=== PATIENT | male | born 1970 | race Caucasian/White ===

== ENCOUNTER → 2019-07-01 | Outpatient (CLI) | payer OTHER ==
[~2019-07-01] VITALS: Ht 180.3 cm; Wt 122.5 kg
[~2019-07-01] MED LIST: CRESTOR5 MG PO; METO-239 PO; NITR0.4T24 SL; PANT40TA77 PO; REGADENOSON 0.4 MG/5 ML DISP.SYRIN. IV ONE
--- NOTE | 2019-07-01 10:16 | CARD ---
MR#: [id number] Date of Study: 07/01/2019 Ordering Physician: ABEL QUINONES, Referring Physician: ABEL QUINONES Tech: Cait Walls RDCS APPROVED REPORT EXAM: Two-dimensional and M-mode echocardiogram with Doppler and color Doppler. Other Information Quality : Good INDICATION Cardiac Disease: CAD 2D DIMENSIONS RVDd2.9 (2.9-3.5cm)Left Atrium(2D)3.8 (1.6-4.0cm) IVSd1.4 (0.7-1.1cm)Aortic Root(2D)2.9 (2.0-3.7cm) LVDd5.1 (3.9-5.9cm)LVOT Diameter2.4 (1.8-2.4cm) PWd1.1 (0.7-1.1cm)LVDs3.7 (2.5-4.0cm) FS (%) 27.0 %SV62.9 ml LVEF(%)55.0 (>50%) Aortic Valve AoV Peak Colt.120.5cm/sAoV VTI24.0cm AO Peak GR.5.8mmHgLVOT Peak Colt.104.1cm/s AO Mean GR.3mmHgAVA (VMAX)3.87cm2 NALLELY (VTI)4.20cm2 Mitral Valve MV E Fbeqidih06.6cm/sMV DECEL ILPY711pt MV A Cmbqipwm79.6cm/sE/A Ratio1.4 Tricuspid Valve TR P. Wwipragq412ka/sRAP UMFEGRBC4mlDl TR Peak Gr.41paMwWRWU22kyFr Pulmonary Vein S1 Jpntnzfm58.8cm/sD2 Qftytopw78.5cm/s LEFT VENTRICLE The left ventricle is normal size. There is mild asymmetric septal hypertrophy. The left ventricular systolic function is normal. The Ejection Fraction is 55-60%. There is normal LV segmental wall motio n. RIGHT VENTRICLE The right ventricle is normal size. The right ventricular systolic function is normal. ATRIA The left atrium size is normal. The right atrium size is normal. The interatrial septum is intact wit h no evidence for an atrial septal defect or patent foramen ovale as noted on 2-D or Doppler imaging. AORTIC VALVE The aortic valve is calcified but opens well. Doppler and Color Flow revealed no significant aortic r egurgitation. There is no significant aortic valvular stenosis. MITRAL VALVE The mitral valve is normal in structure and function. There is no evidence of mitral valve prolapse. There is no mitral valve stenosis. Doppler and Color-flow revealed trace mitral regurgitation. TRICUSPID VALVE The tricuspid valve is normal in structure and function. Doppler and Color Flow revealed trace tricus pid regurgitation. The PA pressure was estimated at 30 mmHg. There is no tricuspid valve stenosis. PULMONIC VALVE The pulmonic valve is not well visualized. Doppler and Color Flow revealed no pulmonic valvular regur gitation. There is no pulmonic valvular stenosis. GREAT VESSELS The aortic root is normal in size. The ascending aorta is mildly dilated at 3.6 cm. The IVC was not v isualized. PERICARDIAL EFFUSION There is no evidence of significant pericardial effusion. Critical Notification Critical Value: No <Conclusion> The left ventricular systolic function is normal. The Ejection Fraction is 55-60%. There is normal LV segmental wall motion. Trace mitral regurgitation. Trace tricuspid regurgitation. The PA pressure was estimated at 30 mmHg. There is no evidence of significant pericardial effusion. Signed by : Abel Quinones, Electronically Approved : 07/01/2019 10:16:15
--- NOTE | 2019-07-02 10:32 | RAD ---
MR#: [id number] Date of Study: 07/02/2019 Ordering Physician: ABEL QUINONES, Referring Physician: DIONNA GOODEN Tech: JACKIE Chaudhry ARRT (R) (N) APPROVED REPORT Test Type: Pharmacological Stress Nurse/Tech: sung Jules RN Test Indications: CAD Cardiac History: CAD Medications: See Electronic Medical Record Medical History: See Electronic Medical Record Resting ECG: SR Resting Heart Rate: 67 bpm Resting Blood Pressure: 128/75mmHg Pretest Chest Pain: None Nurse/Tech Notes lungs CTA, S1S2 Consent: The procedure was explained to the patient in lay terms. Informed consent was witnessed. Benjamin eout was entered into [employer]. History and Stress Test performed by Sung Jules RN Pharm. Details Pharmacologic stress testing was performed using 0.4mg per 5ml of regadenoson given intravenously ove r 7-10 seconds. Stress Symptoms No chest pain or symptoms. POST EXERCISE Reason for Termination: Infusion complete Max HR: 91 bpm Max Blood Pressure: 137/80mmHg Blood Pressure response to exercise: Normal blood pressure response during stress. Heart Rate response to exercise: normal response Chest Pain: No. Arrhythmia: No. ST Change: No. INTERPRETATION Stress EKG Conclusion: Baseline EKG showed sinus rhythm. No ischemic changes at peak stress. No arr hythmias. Imaging Protocol IMAGE PROTOCOL: Rest Tc-99m/stress Tc-99m 1 day Rest: Stress: Viability: Radiopharm.Tc99m KynqnnjijEc23b Sestamibi Iqnk12eDq 32mCi Img Date 07/01/2019 07/02/2019 Inj-Img Zggg25cqr. 45min. Rest Admin Site:IV - Left AntecubitalAdministrator:JACKIE Chaudhry ARRT (R)(N) Stress Admin Site: IV - Right HandAdministrator: RT Janusz (R)(N) STRESS DATA End Diast. Vol.130.0mlAv. Heart Rate67.0bpm End Syst. Vol.33.0mlCO Index BSA6.5L/min Myocardial Wwrs899.0gEject. Hugeohpq84.0% Stress Rates Pk. Fill Rate3.15EDV/secLVtime Pk. Fill 137.63msec Pk. Empty Rate3.41ESV/secLVtime Pk. Zayqv840.55msec / Pk. Fill2.19EDV/sec Stress Scores Regional WT0.00Summed WT1.00 Regional WM0.00Summed WM4.00 Study quality was good. Left Ventricular size was Normal at Rest and Stress. Lung uptake was . Left Ventricular ejection fraction is 66%. The rest and stress images show normal perfusion, normal contraction and thickening. LV Perf. Quant 17 Seg. SSS0.00 17 Seg. SRS0.00 17 Seg. SDS0.00 Stress Defect Extent (% LAD)0.00Rest Defect Extent (% LAD)0.00Rev. Defect Extent (% LAD)0.00 Stress Defect Extent (% LCX) 0.00Rest Defect Extent (% LCX)0.00Rev. Defect Extent (% LCX)0.00 Stress Defect Extent (% RCA)0.00Rest Defect Extent (% RCA)0.00Rev. Defect Extent (% RCA)0.00 Stress Defect Extent (% MONA)0.90Rest Defect Extent (% MONA)0.00Rev. Defect Extent (% MONA)0.90 Conclusion 1. Regadenoson cardioisotope stress test did not show any evidence of ischemia or infarct. 2. Normal left ventricular systolic function with ejection fraction calculated at 66%. 3. Low risk for cardiac events. Signed by : Abel Quinones, Electronically Approved : 07/02/2019 10:31:53
== END | disposition home or self-care (01) ==
LOC: NM 09:09
PROVIDERS: ATTEND Internal Medicine Cardiovascular Disease
DX: I35.8 Other nonrheumatic aortic valve disorders (principal); I25.10 Atherosclerotic heart disease of native coronary artery without angina pectoris
CPT/HCPCS: 78452; 93306; A9500; 93017; 96376; J2785

== ENCOUNTER → 2019-09-07 | Outpatient (CLI) | payer OTHER ==
[~2019-09-07] MED LIST changes: +ASPI-424 PO; +BUPR150T6 PO; +CETI10TA24 PO; +LIDO5CRE9 TP; -REGADENOSON 0.4 MG/5 ML DISP.SYRIN. IV ONE; +TRIA80OI TP
== END | disposition home or self-care (01) ==
LOC: LAB 13:29
PROVIDERS: ATTEND Internal Medicine Cardiovascular Disease
DX: Z01.818 Encounter for other preprocedural examination (principal); K80.10 Calculus of gallbladder with chronic cholecystitis without obstruction
CPT/HCPCS: C9803; U0003; 36415

== ENCOUNTER 2019-09-10 10:01 | Outpatient (CLI) | payer OTHER ==
[~2019-09-10] VITALS: Ht 180.3 cm; Wt 127.0 kg
[2019-09-10] VITALS (11 sets, daily range): BP systolic 106–127; BP diastolic 65–79
[~2019-09-10 10:01] MED LIST changes: -ASPI-424 PO; -BUPR150T6 PO; -CETI10TA24 PO; -LIDO5CRE9 TP; -TRIA80OI TP
[2019-09-10 10:42] LABS: HEMATOCRIT 40.4 % (39.0-53.0); HEMOGLOBIN 13.8 g/dL (13.0-17.5); RED BLOOD COUNT 4.53 x10^6/uL (4.30-5.70); WHITE BLOOD COUNT 11.4 x10^3/uL (4.0-11.0)
[2019-09-10 10:58] LABS: CALCIUM 8.7 mg/dL (8.5-10.1); GFR 79.1; POTASSIUM 3.7 mmol/L (3.5-5.1)
[2019-09-10] MEDS ORDERED: CETI10TA24 PO (11:04)
[2019-09-10] MEDS ORDERED: LIDO5CRE9 TP (11:04)
[2019-09-10] MEDS ORDERED: BUPR150T6 PO (11:04)
[2019-09-10] MEDS ORDERED: TRIA80OI TP (11:04)
[2019-09-10] MEDS ORDERED: ASPI-424 PO (11:04)
[2019-09-10] MEDS ORDERED: IODIXANOL 320 MG/ML 100 ML VIAL. ONE (11:05)
[2019-09-10] MEDS ORDERED: LIDOCAINE 1% PF 2 ML VIAL. ONE (11:05)
[2019-09-10 11:06] LABS: PROTHROMBIN TIME PATIENT 12.8 SEC (11.7-14.0)
[2019-09-10] MEDS ORDERED: fentaNYL PF VIAL 100 MCG/2 ML VIAL ONE (11:19)
[2019-09-10] MEDS ORDERED: MIDAZOLAM HCL/PF 5 MG/5 ML VIAL. ONE (11:19)
[2019-09-10] MEDS ORDERED: LIDOCAINE 1% Multi-Dose 20 ML VIAL. ONE (11:31)
[2019-09-10] MEDS ORDERED: fentaNYL PF VIAL 100 MCG/2 ML VIAL IV ONE (12:00)
[2019-09-10] MEDS ORDERED: IODIXANOL 320 MG/ML 100 ML VIAL. IART ONE (12:00)
[2019-09-10] MEDS ORDERED: MIDAZOLAM HCL/PF 5 MG/5 ML VIAL. IV ONE (12:00)
[2019-09-10] MEDS ORDERED: LIDOCAINE 1% Multi-Dose 20 ML VIAL. INJ ONE (12:00)
[2019-09-10] MEDS ORDERED: 0.9 % SODIUM CHLORIDE 10 ML DISP.SYRIN. IV PRN (13:30)
[2019-09-10] MEDS ORDERED: NITROGLYCERIN SUBLINGUAL 0.4 MG BOTTLE OF 25. SL PRN (13:30)
--- NOTE | 2019-09-10 13:30 | PDOC ---
MODERATE SEDATION ASSESSMENT RISKS/ALTERNATIVES Risks/Alternatives Risks and alternatives of this type of sedation and procedure discussed with: RISK/ALTERNATIVES: Patient H & P ON CHART H & P H & P on chart and reviewed for co-morbid conditions and appropriate labs. H&P ON CHART: Yes STATUS PREG STATUS ASSESSED: N/A MEDS/ALLERGIES REVIEWED Meds/Allergies Reviewed Medications and Allergies including time and route of recently administered narcotics and sedatives. MEDS/ALLERGIES REVIEWED: Yes ASA RATING ASA RATING: II AIRWAY ASSESSMENT Airway Assessment Airway patency, oral function limitations, presence of caps, crowns, dentures, partials, and ability to extend neck assessed. AIRWAY ASSESSMENT: Yes MALLAMPATI SCORE MALLAMPATI SCORE: II PRE-SEDATION ASSESSMENT PRE-SEDATION ASSESSMENT: Yes ABEL QUINONES MD Sep 10, 2019 13:30
--- NOTE | 2019-09-10 14:22 | CARD ---
MR#: [id number] Date of Study: 09/10/2019 Ordering Physician: ABEL QUINONES, Referring Physician: ABEL QUINONES, Tech: Alondra Paulino RT(R) APPROVED REPORT Technologist: Alondra Paulino RT(R) Nurse: Ashleigh Humphrey R.N. Procedure(s) performed: Right and left heart catheterization, selective coronary angiography and left ventriculography Sedation Time: 50 Minutes Dose: 77 Gycm2 Contrast: 105 mL Visipaque 320 Fluoro Time 3.8 minutes INDICATION The indication(s) include : Refractory dyspnea on exertion. [facility] Clinical Frailty Scale [facility] Clinical Frailty Scale: Managing Well Heart Failure Heart Failure: No PROCEDURE NARRATIVE After explaining the risks, benefits and alternative options, informed consent was obtained from hermelinda ent. Patient was brought to the cardiac Cloth Grader and his right groin was prepped and draped in the u sual fashion. 20 cc of 2% lidocaine was infiltrated into the skin and subcutaneous tissues for local anesthesia. Arterial and venous accesses were obtained in the right common femoral artery and vein respectively and 6 and 5 Peruvian sheaths inserted. A 5 Peruvian Kingsley-Lesia catheter was then used to obt ain intracardiac pressures and oxygen saturations. Following this, 6 [place]uvian JL4 and 6 Peruvian JR4 cat heters were used to perform selective angiography of the left and right coronary arteries. 6 [place]uvian pigtail catheter was used to perform left ventriculography. Patient tolerated the procedure well. H emostasis was achieved using Angio-Seal and manual compression. There were no immediate complication s. FINDINGS A. RIGHT HEART CATHETERIZATION 1. Intracardiac pressures: Mean right atrial pressure 4 mmHg, right ventricular pressure 22/3 mmHg, pulmonary artery pressure 17/9 mmHg with a mean PA pressure of 11 mmHg and mean pulmonary capillary w edge pressure 6 mmHg. No pulmonary hypertension. 2. Oxygen saturations: Right atrium 76.2%, pulmonary artery 77.9%, femoral arterial sheath 98.3%. N o evidence of intracardiac shunt. B. LEFT HEART CATHETERIZATION 1. Hemodynamics: Left ventricular end-diastolic pressure 9 mmHg. No pullback gradient across the ao rtic valve. 2. Left ventriculography: Normal left ventricular systolic function with ejection fraction estimated at 55%. No significant mitral regurgitation seen. 3. Coronary angiography: a. The left main coronary artery arose from the left sinus of Valsalva, gave rise to the left anti-d escending and left circumflex arteries and did not show any significant stenosis. b. The left anterior descending artery showed 50% stenosis after the takeoff of a large diagonal bra nch. The very distal segment was the apical wall was a small caliber vessel with moderate diffuse di sease. c. The left circumflex artery did not show any significant stenosis. d. The right coronary artery was a large and dominant vessel arising from the right sinus of Valsalv a that did not show any significant stenosis. Conclusion 1. 50% stenosis in the midsegment and moderate diffuse disease in the apical segment of the left ant erior descending artery. No lesions needing intervention were noted. 2. Normal left ventricular systolic function with ejection fraction estimated at 55%. 3. No pulmonary hypertension. 4. No evidence of intracardiac shunt. Recommendations Cardiovascular risk factor modification Signed by : Abel Quinones, Electronically Approved : 09/10/2019 14:21:35
--- NOTE | 2019-09-10 15:33 | NUR ---
Discharge Note: ADRIEN OLIVER Discharge instructions and discharge home medications reviewed with Patient and a copy given. All questions have been answered and understanding verbalized. Dressing to R groin, replaced, remains clean and dry. Able to tolerate PO, ambulatory with steady gait. The following instructions and handouts were given: groin site care, sedation, angioseal information Discontinued lines and drains: Peripheral IV intact. Patient discharged to Home or Self Care with Spouse via Ambulated JS RN Addendum: 09/10/19 at 1534 by TAYLA NEGRON RN Amended: Links added.
== END 2019-09-10 15:00 | disposition home or self-care (01) ==
LOC: CCL 10:01
PROVIDERS: ATTEND Internal Medicine Cardiovascular Disease
DX: I25.10 Atherosclerotic heart disease of native coronary artery without angina pectoris (principal)
CPT/HCPCS: 36415; 80048; 85027; 85610; 93460; 99152; 99153; C1760; C1769; C1773; C1892; J1644; J2250; J3010; J3490; Q9967; 93453; G0269; C1771

== ENCOUNTER → 2020-10-12 | Outpatient (CLI) | payer OTHER ==
[2019-09-10 14:30] VITALS: BP 122/65
[~2020-10-12] MED LIST changes: +ASPI-424 PO; +BUPR150T21 PO; +CETI10TA74 PO; +LIDO5CRE9 TP; +TRIA80OI TP
--- NOTE | 2020-10-12 22:34 | CARD ---
MR#: [id number] Date of Study: 10/12/2020 Ordering Physician: ABEL QUINONES, Referring Physician: ABEL QUINONES, Tech: Anastacia Munson, [facility] APPROVED REPORT EXAM: Two-dimensional and M-mode echocardiogram with Doppler and color Doppler. Other Information Quality : AverageHR: 65bpm Technically limited study due to body habitus. INDICATION Cardiac Disease: CAD RISK FACTORS Hypertension Hyperlipidemia Previous smoker 2017 2D DIMENSIONS RVDd3.4 (2.9-3.5cm)Left Atrium(2D)3.7 (1.6-4.0cm) IVSd1.3 (0.7-1.1cm)Aortic Root(2D)3.3 (2.0-3.7cm) LVDd5.7 (3.9-5.9cm)LVOT Diameter2.1 (1.8-2.4cm) PWd1.2 (0.7-1.1cm)LVDs2.8 (2.5-4.0cm) FS (%) 50.3 %SV130.8 ml LVEF(%)80.9 (>50%) Aortic Valve AoV Peak Colt.118.3cm/sAoV VTI22.3cm AO Peak GR.5.6mmHgLVOT Peak Colt.97.2cm/s LVOT VTI 20.05cmAO Mean GR.3mmHg NALLELY (VMAX)2.71iw1AIJ (VTI)3.13cm2 Mitral Valve MV E Qtaqafwo65.8cm/sMV DECEL NUTV728ip MV A Fbktjdjc78.6cm/sMV GCX57rr E/A Ratio0.9MVA (PHT)3.52cm2 TDI E/Lateral E'5.7E/Medial E'7.5 Pulmonary Valve PV Peak Fkfizzsf419.7cm/sPV Peak Grad.4mmHg Tricuspid Valve TR P. Sxduapwk918oq/sRAP MCSPBWVI4jgHm TR Peak Gr.32mkCkUSXO86jaHl Pulmonary Vein S1 Gcqgdwtk93.7cm/sD2 Riegyszx08.5cm/s PVa pjfdpdsk326tlwj LEFT VENTRICLE The left ventricle is normal size. There is mild to moderate concentric left ventricular hypertrophy. The left ventricular systolic function is normal and the ejection fraction is within normal range. T he Ejection Fraction is 55-60%. There is normal LV segmental wall motion. Transmitral Doppler flow pa ttern is Grade II-pseudonormal filling dynamics. RIGHT VENTRICLE The right ventricle is mildly dilated. There is normal right ventricular wall thickness. The right ve ntricular systolic function is normal. ATRIA The left atrium size is normal. The right atrium is borderline dilated. The interatrial septum is int act with no evidence for an atrial septal defect or patent foramen ovale as noted on 2-D or Doppler i maging. AORTIC VALVE The aortic valve is normal in structure and function. Doppler and Color Flow revealed no significant aortic regurgitation. There is no significant aortic valvular stenosis. Calculated aortic valve area is 2.39 cm2 with maximum pressure gradient of 7 mmHg and mean pressure gradient of 4 mmHg. MITRAL VALVE The mitral valve is normal in structure and function. There is no evidence of mitral valve prolapse. There is no mitral valve stenosis. Doppler and Color-flow revealed trace mitral regurgitation. TRICUSPID VALVE The tricuspid valve is normal in structure and function. Doppler and Color Flow revealed trace tricus pid regurgitation with an estimated PAP of 31 mmHg. There is no tricuspid valve stenosis. PULMONIC VALVE The pulmonic valve is not well visualized. Doppler and Color Flow revealed no pulmonic valvular regur gitation. There is no pulmonic valvular stenosis. GREAT VESSELS The aortic root is normal in size. The ascending aorta is normal in size. The IVC was not well visual ized. PERICARDIAL EFFUSION There is no evidence of significant pericardial effusion. Critical Notification Critical Value: No <Conclusion> The left ventricular systolic function is normal and the ejection fraction is within normal range. Th e Ejection Fraction is 55-60%. There is normal LV segmental wall motion. The right ventricle is mildly dilated. Technically difficult study. Signed by : Mitchel Franco, Electronically Approved : 10/12/2020 22:33:52
== END ==
LOC: ECHO 08:58
PROVIDERS: ATTEND Internal Medicine Cardiovascular Disease
DX: I51.7 Cardiomegaly (principal); I25.10 Atherosclerotic heart disease of native coronary artery without angina pectoris
CPT/HCPCS: 93306

== ENCOUNTER → 2020-10-28 | Outpatient (CLI) | payer OTHER ==
[2019-09-10 14:30] VITALS: BP 122/65
--- NOTE | 2020-11-01 08:55 | RESP ---
DATE OF SERVICE: 10/28/2020 PULMONARY FUNCTION TEST REFERRING PHYSICIAN: Debra Payne MD The patient's spirometry shows an FVC of 4.61, which is 89% predicted. FEV1 3.57, which is 89% predicted. The FEV1/FVC ratio was normal. No bronchodilators given. Lung volumes showed increased total lung capacity and increased residual volume. Diffusion capacity was 121% predicted. IMPRESSION: 1. No evidence of obstructive airway disease. 2. No bronchodilators given. 3. Lung volumes consistent with hyperinflation. 4. Increased diffusion capacity. FLY/MICHI DR: Rossana TID: [id number] CC: DEBRA PAYNE MD
== END ==
LOC: PF 08:14
PROVIDERS: ATTEND Internal Medicine Pulmonary Disease
DX: Z01.818 Encounter for other preprocedural examination (principal); R06.00 Dyspnea, unspecified
CPT/HCPCS: 94010; 94618; 94726; 94729

== ENCOUNTER → 2020-11-02 | Outpatient (CLI) | payer OTHER ==
[2019-09-10 14:30] VITALS: BP 122/65
--- NOTE | 2020-11-02 10:57 | RAD ---
Examination: CT chest without contrast HISTORY: History of chest pain, dyspnea COMPARISON: None TECHNIQUE: Axial CT images of chest were performed without contrast. Coronal and sagittal reformats a re performed Exposure: One or more of the following individualized dose reduction techniques were utilized for thi s examination: 1. Automated exposure control 2. Adjustment of the mA and/or kV according to patient size 3. Use of iterative reconstruction technique FINDINGS: The central airways are patent. Mild coronary artery calcifications. The ascending aorta measures 3.9 cm in transverse dimension. The heart size grossly appears unremarkable. No radiological significant mediastinal lymphadenopathy identified. Minimal apical lung emphysematous changes. There is a 3.5 mm nodule identified in the left lower lobe lung abutting the pleura. Mild decreased attenuation noted in the liver likely hepatic steatosis. The spleen, adrenals grossly appears unremarkable. Partially v isualized cystic structure identified in the left kidney measuring 2.1 cm measuring 17 [place] uni ts likely a cyst. Mild degenerative changes thoracic spine. IMPRESSION: 1. 3.5 mm nodule identified in the left lower lobe lung abutting the pleura. Per Fleischner Society guidelines for incidentally found solid nodules measuring less than 6 mm, no follow-up is necessary i f patient is considered at low risk for lung cancer. If patient is considered to be at high risk, suc h as with history of smoking, then CT follow-up in about 12 months can be considered. 2. Mild coronary artery calcifications. 3. Mild hepatic steatosis. 4. Partially visualized cystic structure identified in the left kidney measuring 2.1 cm measuring 17 Hounsfield units likely a cyst. Electronically signed by: Trey Du MD (11/02/2020 10:55 AM) [id number]
== END ==
LOC: CT 09:30
PROVIDERS: ATTEND Internal Medicine Pulmonary Disease
DX: J43.9 Emphysema, unspecified (principal); R91.8 Other nonspecific abnormal finding of lung field; I25.10 Atherosclerotic heart disease of native coronary artery without angina pectoris; K76.0 Fatty (change of) liver, not elsewhere classified; N28.9 Disorder of kidney and ureter, unspecified; M47.814 Spondylosis without myelopathy or radiculopathy, thoracic region
CPT/HCPCS: 71250